=== PATIENT | male | born 1960 | race American Indian/Alaskan Native ===

== ENCOUNTER 2017-04-08 12:35 | Emergency (ER) | payer OTHER ==
[2017-04-08 12:47] VITALS: RESP 18
[2017-04-08] MEDS ORDERED: Aspirin 325 mg EC Tablets PO STA (13:08)
--- NOTE | 2017-04-08 13:46 | RAD ---
PROCEDURE: CHEST RADIOGRAPH, 1 VIEW HISTORY: chest pain COMPARISON: None available. FINDINGS: LUNGS: Clear. PLEURA: No pneumothorax or pleural fluid seen. CARDIOVASCULAR: Normal. OSSEOUS STRUCTURES: No significant abnormalities. VISUALIZED UPPER ABDOMEN: Normal. OTHER FINDINGS: None. IMPRESSION: No active disease.
[2017-04-08 13:48] LABS: BASO % 0.7 % (0.0-2.0); EOS # 0.1 K/uL (0.0-0.7); EOS % 1.4 % (0.0-4.0); LYMPH # 1.7 K/uL (1.0-4.3); LYMPH % 34.4 % (20.0-40.0); MEAN CELL VOLUME 92.7 fL (80.0-94.0); MEAN CORPUSCULAR HEMOGLOBIN 30.8 pg (27.0-31.0); MEAN CORPUSCULAR HGB CONC 33.3 g/dL (33.0-37.0); MONO # 0.5 K/uL (0.0-0.8); MONO % 10.4 % (0.0-10.0); NRBC % 0.1 % (0.0-2.0); RED CELL DISTRIBUTION WIDTH 13.8 % (11.5-14.5); WHITE BLOOD COUNT 4.9 K/uL (4.8-10.8)
[2017-04-08 14:00] LABS: ALB/GLOB RATIO 1.1 (1.0-2.1); ALKALINE PHOSPHATASE 77 U/L (38-126); ALT/SGPT 32 U/L (21-72); AST/SGOT 37 U/L (17-59); BILIRUBIN,TOTAL 0.7 mg/dL (0.2-1.3); BLOOD UREA NITROGEN 14 mg/dL (9-20); CALCIUM 8.8 mg/dl (8.6-10.4); CARBON DIOXIDE 23 mmol/L (22-30); CHLORIDE 107 mmol/L (98-107); GFR AFRICAN-AMERICAN > 60; GLUCOSE,RANDOM 100 mg/dL (75-110); POTASSIUM 3.9 mmol/L (3.6-5.2); SODIUM 142 mmol/L (132-148); TOTAL PROTEIN 7.2 g/dL (6.3-8.3)
[2017-04-08 14:50] VITALS: BP 201/91; PULSE 88; TEMP 97.7; O2SAT 99
--- NOTE | 2017-04-08 17:46 | C.PDOC ---
History Of Present Illness 56 y/o male presents to ED with complaints of intermittent chest pain for 5 days and occasional sob after walking flight of stairs. Patient reports he has not seen PMD in 2 years. AT ed patient is currently pain free and denies fever, cough, nausea, vomiting, recent travel, change in appetite or any other complaints at this time. Time Seen by Provider: 04/08/17 13:08 Chief Complaint (Nursing): Chest Pain History Per: Patient History/Exam Limitations: no limitations Onset/Duration Of Symptoms: Days Current Symptoms Are (Timing): Still Present Past Medical History Reviewed: Historical Data, Nursing Documentation, Vital Signs Vital Signs: Last Vital Signs Temp 97.7 F 04/08/17 14:49 Pulse 88 04/08/17 14:49 Resp 18 04/08/17 14:49 BP 201/91 H 04/08/17 14:49 Pulse Ox 99 04/08/17 17:50 - Medical History PMH: HTN Family History: States: No Known Family Hx - Social History Hx Alcohol Use: Yes Hx Substance Use: No - Immunization History Hx Tetanus Toxoid Vaccination: No Hx Influenza Vaccination: No Hx Pneumococcal Vaccination: No Review Of Systems Except As Marked, All Systems Reviewed And Found Negative. Constitutional: Negative for: Fever, Chills Cardiovascular: Positive for: Chest Pain Respiratory: Positive for: Shortness of Breath. Negative for: Cough Gastrointestinal: Negative for: Nausea, Vomiting Skin: Negative for: Rash Physical Exam - Physical Exam Appears: Non-toxic, No Acute Distress Skin: Normal Color, Warm, No Rash Head: Atraumatic, Normacephalic Eye(s): bilateral: Normal Inspection Oral Mucosa: Moist Chest: Symmetrical Cardiovascular: Rhythm Regular Respiratory: Normal Breath Sounds, No Rales, No Rhonchi, No Wheezing Gastrointestinal/Abdominal: Soft, No Tenderness, No Guarding, No Rebound Neurological/Psych: Oriented x3, Normal Speech ED Course And Treatment - Laboratory Results Result Diagrams: 04/08/17 13:42 04/08/17 13:42 ECG: Interpreted By Me, Viewed By Me ECG Rhythm: Sinus Rhythm Interpretation Of ECG: LVH with repolarization abnormality Rate From EC (bpm) O2 Sat by Pulse Oximetry: 99 (RA) Pulse Ox Interpretation: Normal Medical Decision Making Medical Decision Making: Patient will be discharged and advised to follow up with PMD. Disposition - Disposition Referrals: [facility] [Outside] [facility] [Outside] Disposition: HOME/ ROUTINE Disposition Time: 14:20 Condition: GOOD Additional Instructions: Thank you for letting us take care of you today. Your provider was Dr. Raymond. You were treated for non-cardiac chest pain. The emergency medical care you received today was directed at your acute symptoms. If you were prescribed any medication, please fill it and take as directed. It may take several days for your symptoms to resolve. Return to the Emergency Department if your symptoms worsen, do not improve, or if you have any other problems. Please contact your doctor or call one of the physicians/clinics you have been referred to that are listed on the Patient Visit Information form that is included in your discharge packet. Bring any paperwork you were given at discharge with you along with any medications you are taking to your follow up visit. Our treatment cannot replace ongoing medical care by a primary care provider (PCP) outside of the emergency department. Thank you for allowing the [facility] team to be part of your care today. Follow up with the clinic in 3-4 days for outpatient care and further management. Prescriptions: Hydrochlorothiazide [Microzide] 12.5 mg PO DAILY #7 cap Ibuprofen [Motrin] 600 mg PO Q6 PRN #20 tab PRN Reason: Pain, Moderate (4-7) Instructions: Low Sodium Diet (ED), Hypertension (ED) Forms: [employer] (Fijian) - Clinical Impression Clinical Impression: Hypertension - Scribe Statement The provider has reviewed the documentation as recorded by the Kiahibtish Vila All medical record entries made by the Scribe were at my direction and personally dictated by me. I have reviewed the chart and agree that the record accurately reflects my personal performance of the history, physical exam, medical decision making, and the department course for this patient. I have also personally directed, reviewed, and agree with the discharge instructions and disposition.
--- NOTE | 2017-04-11 21:00 | CARD ---
APPROVED REPORT EKG Measurement Heart [id number] <Conclusion> Normal sinus rhythm Possible Left atrial enlargement Left ventricular hypertrophy with repolarization abnormality Prolonged QT Abnormal ECG
== END 2017-04-08 14:50 | disposition home or self-care (01) ==
LOC: C.ER 12:35
DX: I10 Essential (primary) hypertension (principal)
CPT/HCPCS: 71010; 80053; 83880; 84484; 85025; 96374; 99284; J1885

== ENCOUNTER 2018-06-01 14:55 | Inpatient (IN) | payer SELFPAY ==
[2018-06-01] MEDS ORDERED: Nitroglycerin 2% Ointment Foilpak UD TOP STA (15:27)
[2018-06-01] MEDS ORDERED: Nitroglycerin 2% Ointment Foilpak UD TOP ONE (15:44)
[2018-06-01 16:04] LABS: BASO # 0.1 K/uL (0.0-0.2); EOS # 0.1 K/uL (0.0-0.7); EOS % 1.2 % (0.0-4.0); HEMOGLOBIN 15.3 g/dL (12.0-18.0); LYMPH # 1.2 K/uL (1.0-4.3); LYMPH % 22.8 % (20.0-40.0); MEAN CELL VOLUME 92.5 fL (80.0-94.0); MEAN CORPUSCULAR HEMOGLOBIN 31.8 pg (27.0-31.0); MEAN CORPUSCULAR HGB CONC 34.4 g/dL (33.0-37.0); MEAN PLATELET VOLUME 9.6 fL (7.2-11.7); MONO # 0.6 K/uL (0.0-0.8); MONO % 10.3 % (0.0-10.0); NEUT # 3.5 K/uL (1.8-7.0); NEUT % 64.7 % (50.0-75.0); NRBC % 0.1 % (0.0-2.0); RBC 4.82 Mil/uL (4.40-5.90); RED CELL DISTRIBUTION WIDTH 14.4 % (11.5-14.5); WHITE BLOOD COUNT 5.5 K/uL (4.8-10.8)
[2018-06-01 16:11] VITALS: BMI 35.0
--- NOTE | 2018-06-01 16:11 | C.PDOC ---
History Of Present Illness 58 y/o male presents to ED for evaluation of worsening dyspnea on exertion for the last 2 months since he ran out of his medications. He reports difficulty with walking up the stairs due to SOB, and SOB with minimal exertion. Smokes 1/2 ppd. He reports increased abdominal girth without increased PO intake. Denies other complaints. Time Seen by Provider: 06/01/18 15:14 Chief Complaint (Nursing): Chest Pain History Per: Patient History/Exam Limitations: no limitations Past Medical History Reviewed: Historical Data, Nursing Documentation, Vital Signs Vital Signs: Last Vital Signs Temp 97.7 F 06/01/18 15:05 Pulse 86 06/01/18 15:05 Resp 23 06/01/18 15:05 BP 169/120 H 06/01/18 15:05 Pulse Ox 100 06/01/18 15:05 - Medical History PMH: HTN Family History: States: Unknown Family Hx - Social History Hx Alcohol Use: Yes Hx Substance Use: No - Immunization History Hx Tetanus Toxoid Vaccination: No Hx Influenza Vaccination: No Hx Pneumococcal Vaccination: No Review Of Systems Constitutional: Positive for: Other (severe sleep apnea, + orthopnea). Negative for: Fever, Chills Cardiovascular: Negative for: Chest Pain, Palpitations, Edema Respiratory: Positive for: Shortness of Breath, SOB with Excertion Gastrointestinal: Negative for: Nausea, Abdominal Pain Physical Exam - Physical Exam Appears: Non-toxic, No Acute Distress, Other (morbildy obese) Skin: Normal Color, Warm, Dry Head: Atraumatic, Normacephalic Eye(s): bilateral: Normal Inspection Oral Mucosa: Moist Neck: Supple Chest: Symmetrical Cardiovascular: JVD Respiratory: Normal Breath Sounds, No Rales, No Rhonchi, No Wheezing Gastrointestinal/Abdominal: Soft, No Tenderness, No Guarding, No Rebound, Other (globus abdomen, dull to percussion, shifting fluid?) Back: No CVA Tenderness Extremity: Normal ROM, Pedal Edema (1/4) Neurological/Psych: Oriented x3, Normal Speech ED Course And Treatment - Laboratory Results Result Diagrams: 06/01/18 15:59 06/01/18 15:59 Lab Interpretation: Abnormal (bnp 3700, trop neg, d-dimer mild elev 470 (below age limit for abn)) ECG: Interpreted By Me ECG Rhythm: Sinus Rhythm ECG Interpretation: Normal, Abnormal (LVH) Rate From EC O2 Sat by Pulse Oximetry: 100 - Radiology CXR: Interpreted by Me CXR Interpretation: Yes: Heart Size, Other (++CHF, ++ Cardiomegaly) Reevaluation Time: 17:35 (diuresed 2 L light Lasix urine, but still ++ HTN, Lisinopril 40 po ordered) - Physician Consult Information Outcome Of Conversation: 1730: d/w Dr. Haque- Hospitalist Electromechanical Technician- covering self-pay pt, ok to admit Medical Decision Making Medical Decision Making: Acutual pre-diuresis body weight 270# in ED (baseline 250#, per pt) CHF Severe dilated cardiomyopathy per CXR mild leg edema continue lasix Uncontrolled HTN ran out of meds 2 mo ago continue HTN meds QUYEN: Severe s/s poor sleep poor PO intake but steady weight gait consider Bipap/Sleep study Abd obesity Abd US fatty liver only continued weight loss. Disposition Doctor Will See Patient In The: Hospital Counseled Patient/Family Regarding: Studies Performed, Diagnosis - Disposition Disposition: HOSPITALIZED Disposition Time: 17:33 Condition: FAIR Forms: Hait[employer] (Nigerien) - Clinical Impression Clinical Impression: CHF (congestive heart failure), Sleep apnea in adult, Uncontrolled hypertension - Scribe Statement The provider has reviewed the documentation as recorded by the Scribe KP All medical record entries made by the Scribe were at my direction and personally dictated by me. I have reviewed the chart and agree that the record accurately reflects my personal performance of the history, physical exam, medical decision making, and the department course for this patient. I have also personally directed, reviewed, and agree with the discharge instructions and disposition.
--- NOTE | 2018-06-01 16:33 | RAD ---
Date of service: 06/01/2018 PROCEDURE: CHEST RADIOGRAPH, 1 VIEW HISTORY: SOB COMPARISON: 04/08/2017 FINDINGS: LUNGS: Pulmonary vascular congestion. No discrete infiltrates. PLEURA: No pneumothorax or pleural fluid seen. CARDIOVASCULAR: Cardiomegaly. OSSEOUS STRUCTURES: No significant abnormalities. VISUALIZED UPPER ABDOMEN: Normal. OTHER FINDINGS: None. IMPRESSION: Cardiomegaly/new pulmonary vascular congestion compared to the prior study.
[2018-06-01 16:59] LABS: BLOOD UREA NITROGEN 12 mg/dL (9-20); CALCIUM 8.8 mg/dl (8.6-10.4); GFR NON-AFRICAN AMERICAN > 60
--- NOTE | 2018-06-01 16:59 | US ---
HISTORY: abd enlarged, ? ascites/liver COMPARISON: None available. TECHNIQUE: Sonographic evaluation of the abdomen. FINDINGS: LIVER: Measures 18.2 cm in sagittal dimension. Echogenic liver may be seen in setting of hepatic parenchymal disease or fatty infiltration. No focal hepatic mass identified. The main portal vein appears patent with normal directional flow. No intrahepatic bile duct dilatation. GALLBLADDER: No gallstones. No gallbladder wall thickening. Negative sonographic Rocha's sign as assessed by the regional production manager. COMMON BILE DUCT: Measures 4 mm. PANCREAS: Not well visualized. RIGHT KIDNEY: Measures 9.7 x 4.9 x 5.1 cm. No obstructing calculus or hydronephrosis identified. LEFT KIDNEY: Measures 11.4 x 5.3 x 4.7 cm. No obstructing calculus or hydronephrosis identified. 5.9 x 6.6 x 5.9 cm lower pole cyst. 1.9 x 1.3 x 1.6 cm lower pole cyst. 2.3 x 1.6 x 1.9 cm midpole cyst. SPLEEN: Measures approximately 8 cm. AORTA: Limited views appear unremarkable. IVC: Limited views appear unremarkable. OTHER FINDINGS: None. IMPRESSION: Echogenic liver may be seen in setting of hepatic parenchymal disease or fatty infiltration. Left renal cysts measuring up to 6.6 cm.
[2018-06-01 17:00] LABS: ALB/GLOB RATIO 1.1 (1.0-2.1); ALBUMIN 3.7 g/dL (3.5-5.0); ALT/SGPT 22 U/L (21-72); AST/SGOT 36 U/L (17-59)
[2018-06-01 17:11] LABS: B-TYPE NATRIURETIC PEPTIDE 3710 pg/mL (0-900)
[2018-06-01 17:15] LABS: INR 1.1
[2018-06-01 17:16] LABS: URINE BACTERIA RARE (<OCC); URINE BILIRUBIN NEGATIVE (NEGATIVE); URINE BLOOD NEGATIVE (NEGATIVE); URINE CLARITY Clear (Clear); URINE COLOR Yellow (YELLOW); URINE GLUCOSE (UA) NORMAL (Normal); URINE LEUKOCYTE ESTERASE NEG Leu/uL (Negative); URINE PROTEIN NEGATIVE (NEGATIVE); URINE UROBILINOGEN NORMAL mg/dL (0.2-1.0)
[2018-06-01 17:34] LABS: BARBITURATES, UR NEGATIVE (NEGATIVE); BENZODIAZEPINES, UR NEGATIVE (NEGATIVE); OPIATES, UR NEGATIVE (NEGATIVE); PHENCYCLIDINE, UR NEGATIVE (NEGATIVE)
--- NOTE | 2018-06-01 19:33 | CP.PCM.HP ---
<Lolis Hair - Last Filed: 06/02/18 03:54> History of Present Illness - History of Present Illness History of Present Illness: History and Physical - Hospitalist Service CC: Progressive Dyspnea on exertion, chest pain HPI: Patient is a 58 year old male with past medical history of Hypertension who presented to the emergency department for worsening dyspnea and chest pain. Patient states that he has been having increasing dyspnea on exertion for the past 2-3 months. He states that he is able to walk up 1 flight of stairs before having to stop due to shortness of breath. He states that he sleeps with one pillow at night. Patient states that chest pain started a few m onths ago as well. It is intermittent in nature and he believes is associated with shortness of breath. Chest pain is left sided and does not radiate. It was the most severe last night when he was laying down. Describes the pain as concurrent. He denies any alleviating or exacerbating factors. Not associated with movement. Denies diaphoresis, nausea, vomiting. He state that he fell walking down a flight of steps 3 months ago. He was not having chest pain or shortness of breath at that time. Admits to fatigue and not being able to sleep at night. He is unable to explain why he cannot sleep at night. Denies fevers, chills, nausea/vomiting, recent travel, sick contacts, headaches, dizziness, co ugh, palpitations, abdominal pain, orthopnea, lower extremity swelling, urinary symptoms, changes in bowel habits, hematuria. ED Course: Lasix 20mg IVP, Vastec 40mg PO x 1, Nitro 2% Allergies: NKDA Medications: HCTZ 12.5mg PO daily (ran out months ago) Medical History: Hypertension Surgical History: Denies Social History: Smokes 1 pack of cigarettes every 3 days, drinks 6 pack of beer on weekends occasionally, denies drug use; works as contractor, lives alone Family History: Mother - brain tumor, CVA in 70s, Father - CVA in 80s, Brother - Kidney cancer (), Brother - Leg cancer Present on Admission - Present on Admission Any Indicators Present on Admission: No Past Patient History - Past Social History Smoking Status: Light Smoker < 10 Cigarettes Daily - CARDIAC Hx Hypertension: Yes - PSYCHIATRIC Hx Substance Use: No - SURGICAL HISTORY Hx Surgeries: No - ANESTHESIA Hx Anesthesia: No Meds Allergies/Adverse Reactions: Allergies Allergy/AdvReac Type Severity Reaction Status Date / Time No Known Allergies Allergy Verified 06/01/18 15:03 Physical Exam - Constitutional Appears: Non-toxic, No Acute Distress - Head Exam Head Exam: ATRAUMATIC, NORMAL INSPECTION, NORMOCEPHALIC - Eye Exam Eye Exam: EOMI, Normal appearance Pupil Exam: NORMAL ACCOMODATION - ENT Exam ENT Exam: Mucous Membranes Moist - Neck Exam Neck exam: Positive for: Full Rom. Negative for: Tenderness - Respiratory Exam Respiratory Exam: Decreased Breath Sounds, NORMAL BREATHING PATTERN. absent: Rales, Rhonchi, Wheezes - Cardiovascular Exam Cardiovascular Exam: REGULAR RHYTHM, +S1, +S2. absent: Systolic Murmur - GI/Abdominal Exam GI & Abdominal Exam: Distended, Normal Bowel Sounds, Soft. absent: Guarding, Hernia, Rebound, Rigid, Tenderness - Extremities Exam Extremities exam: Positive for: normal inspection, pedal pulses present. Negative for: calf tenderness, joint swelling, pedal edema, tenderness - Back Exam Back exam: CVA tenderness (R), NORMAL INSPECTION - Neurological Exam Neurological exam: Alert, Oriented x3 - Psychiatric Exam Psychiatric exam: Normal Affect, Normal Mood - Skin Skin Exam: Dry, Normal Color, Warm Results - Vital Signs Recent Vital Signs: Last Vital Signs Temp 97.7 F 06/01/18 15:05 Pulse 81 06/01/18 18:44 Resp 19 06/01/18 18:44 BP 151/91 H 06/01/18 18:44 Pulse Ox 96 06/01/18 18:44 - Labs Result Diagrams: 06/01/18 15:59 06/01/18 15:59 Labs: Laboratory Results - last 24 hr 06/01/18 06/01/18 06/01/18 15:59 15:59 16:55 WBC 5.5 RBC 4.82 Hgb 15.3 Hct 44.6 MCV 92.5 MCH 31.8 H MCHC 34.4 RDW 14.4 Plt Count 204 MPV 9.6 Neut % (Auto) 64.7 Lymph % (Auto) 22.8 Peach % (Auto) 10.3 H Eos % (Auto) 1.2 Baso % (Auto) 1.0 Neut # (Auto) 3.5 Lymph # (Auto) 1.2 Peach # (Auto) 0.6 Eos # (Auto) 0.1 Baso # (Auto) 0.1 PT 12.0 INR 1.1 APTT 35 H D-Dimer, Quantitative 470 H Sodium 142 Potassium 5.1 Chloride 109 H Carbon Dioxide 23 Anion Gap 15 BUN 12 Creatinine 1.0 Est GFR ( Amer) > 60 Est GFR (Non-Af Amer) > 60 Random Glucose 98 Calcium 8.8 Total Bilirubin 1.1 AST 36 ALT 22 Alkaline Phosphatase 61 Troponin I 0.0680 NT-Pro-B Natriuret Pep 3710 H Total Protein 7.1 Albumin 3.7 Globulin 3.4 Albumin/Globulin Ratio 1.1 Urine Color Urine Clarity Urine pH Ur Specific [place] Urine Protein Urine Glucose (UA) Urine Ketones Urine Blood Urine Nitrate Urine Bilirubin Urine Urobilinogen Ur Leukocyte Esterase Urine WBC (Auto) Urine Bacteria Urine Opiates Screen Urine Methadone Screen Ur Barbiturates Screen Ur Phencyclidine Scrn Ur Amphetamines Screen U Benzodiazepines Scrn U Oth Cocaine Metabols U Cannabinoids Screen 06/01/18 06/01/18 17:11 17:11 WBC RBC Hgb Hct MCV MCH MCHC RDW Plt Count MPV Neut % (Auto) Lymph % (Auto) Peach % (Auto) Eos % (Auto) Baso % (Auto) Neut # (Auto) Lymph # (Auto) Peach # (Auto) Eos # (Auto) Baso # (Auto) PT INR APTT D-Dimer, Quantitative Sodium Potassium Chloride Carbon Dioxide Anion Gap BUN Creatinine Est GFR ( Amer) Est GFR (Non-Af Amer) Random Glucose Calcium Total Bilirubin AST ALT Alkaline Phosphatase Troponin I NT-Pro-B Natriuret Pep Total Protein Albumin Globulin Albumin/Globulin Ratio Urine Color Yellow Urine Clarity Clear Urine pH 6.0 Ur Specific [place] 1.004 Urine Protein Negative Urine Glucose (UA) Normal Urine Ketones Negative Urine Blood Negative Urine Nitrate Negative Urine Bilirubin Negative Urine Urobilinogen Normal Ur Leukocyte Esterase Neg Urine WBC (Auto) < 1 Urine Bacteria Rare Urine Opiates Screen Negative Urine Methadone Screen Negative Ur Barbiturates Screen Negative Ur Phencyclidine Scrn Negative Ur Amphetamines Screen Negative U Benzodiazepines Scrn Negative U Oth Cocaine Metabols Negative U Cannabinoids Screen Negative Assessment & Plan - Assessment and Plan (Free Text) Assessment: A/P: Patient is a 58 year old male with past medical history of Hypertension who presented to the Emergency Dept for worsening dyspnea and left sided chest pain. Dyspnea likely secondary to new onset CHF -Stable, afebrile -EKG showed LVH with inverted T waves -Initial Troponin negative, Trend [place] Q8H x 2 -CXR showed Cardiomegaly with increased pulmonary vascular congestion (see full report) -S/P Lasix 20mg IVP x 1 -Echocardiogram ordered -Start on Lisinopril 10mg daily, Coreg 3.125mg PO BID -Continue Lasix 20mg IVP daily -Daily weights, Intake and output -Cardiology on consult, Dr Loza, help appreciated Chest pain, r/o ACS -EKG showed LVH with inverted T waves -Initial Troponin negative, Trend [place] Q8H x 2 -F/U TSH/Free T4, Lipid panel, Hemoglobin A1C -Cardiology on consult, Dr Loza, help appreciated Hypertension -Started on Lisinopril 10mg PO daily, Coreg 3.125mg PO BID -Monitor Vitals Renal Cysts -Up to 6.6cm renal cyst noted on abdominal US -Will order CT abd/pelvis for further evaluation Tobacco abuse -Cessation encouraged GI/DVT ppx: -Protonix 40mg PO daily -Lovenox 40mg SC daily Plan discussed with Dr Reji Hair DO PGY-2 <Jet Mendoza P - Last Filed: 06/02/18 07:09> Results - Vital Signs Recent Vital Signs: Last Vital Signs Temp 98.1 F 06/02/18 04:00 Pulse 78 06/02/18 04:00 Resp 20 06/02/18 04:00 BP 148/100 H 06/02/18 04:00 Pulse Ox 96 06/02/18 04:00 - Labs Result Diagrams: 06/01/18 15:59 06/01/18 15:59 Labs: Laboratory Results - last 24 hr 06/01/18 06/01/18 06/01/18 15:59 15:59 16:55 WBC 5.5 RBC 4.82 Hgb 15.3 Hct 44.6 MCV 92.5 MCH 31.8 H MCHC 34.4 RDW 14.4 Plt Count 204 MPV 9.6 Neut % (Auto) 64.7 Lymph % (Auto) 22.8 Peach % (Auto) 10.3 H Eos % (Auto) 1.2 Baso % (Auto) 1.0 Neut # (Auto) 3.5 Lymph # (Auto) 1.2 Peach # (Auto) 0.6 Eos # (Auto) 0.1 Baso # (Auto) 0.1 PT 12.0 INR 1.1 APTT 35 H D-Dimer, Quantitative 470 H Sodium 142 Potassium 5.1 Chloride 109 H Carbon Dioxide 23 Anion Gap 15 BUN 12 Creatinine 1.0 Est GFR ( Amer) > 60 Est GFR (Non-Af Amer) > 60 Random Glucose 98 Calcium 8.8 Total Bilirubin 1.1 AST 36 ALT 22 Alkaline Phosphatase 61 Total Creatine Kinase CK-MB (Mass) Troponin I 0.0680 NT-Pro-B Natriuret Pep 3710 H Total Protein 7.1 Albumin 3.7 Globulin 3.4 Albumin/Globulin Ratio 1.1 Urine Color Urine Clarity Urine pH Ur Specific [place] Urine Protein Urine Glucose (UA) Urine Ketones Urine Blood Urine Nitrate Urine Bilirubin Urine Urobilinogen Ur Leukocyte Esterase Urine WBC (Auto) Urine Bacteria Urine Opiates Screen Urine Methadone Screen Ur Barbiturates Screen Ur Phencyclidine Scrn Ur Amphetamines Screen U Benzodiazepines Scrn U Oth Cocaine Metabols U Cannabinoids Screen 06/01/18 06/01/18 06/01/18 17:11 17:11 22:40 WBC RBC Hgb Hct MCV MCH MCHC RDW Plt Count MPV Neut % (Auto) Lymph % (Auto) Peach % (Auto) Eos % (Auto) Baso % (Auto) Neut # (Auto) Lymph # (Auto) Peach # (Auto) Eos # (Auto) Baso # (Auto) PT INR APTT D-Dimer, Quantitative Sodium Potassium Chloride Carbon Dioxide Anion Gap BUN Creatinine Est GFR ( Amer) Est GFR (Non-Af Amer) Random Glucose Calcium Total Bilirubin AST ALT Alkaline Phosphatase Total Creatine Kinase 134 CK-MB (Mass) 2.11 Troponin I 0.0680 NT-Pro-B Natriuret Pep Total Protein Albumin Globulin Albumin/Globulin Ratio Urine Color Yellow Urine Clarity Clear Urine pH 6.0 Ur Specific [place] 1.004 Urine Protein Negative Urine Glucose (UA) Normal Urine Ketones Negative Urine Blood Negative Urine Nitrate Negative Urine Bilirubin Negative Urine Urobilinogen Normal Ur Leukocyte Esterase Neg Urine WBC (Auto) < 1 Urine Bacteria Rare Urine Opiates Screen Negative Urine Methadone Screen Negative Ur Barbiturates Screen Negative Ur Phencyclidine Scrn Negative Ur Amphetamines Screen Negative U Benzodiazepines Scrn Negative U Oth Cocaine Metabols Negative U Cannabinoids Screen Negative Attending/Attestation - Attestation I have personally seen and examined this patient.: Yes I have fully participated in the care of the patient.: Yes I have reviewed all pertinent clinical information: Yes Notes (Text): 06/02/18 06:56 Progressive sob and cp on exertion, no orthpnea, clinically not volume overload, LVH with strain pattern on the ekg, with uncontrolled htn, DD of hypertensive cardiomyopathy vs previous with new angina. Noncompliance with meds Abdominal distension likely form fat, weight gain Tobacco abuse Plan ACEI, Beta stephen for cardiac remodelling, added hctz for better control of BP as well ASA, Crestor as he as risk factors and cad clinically Echo in patient Stress test in patient vs out patient Counselled about tobacco cessation, compliance with meds and health Abd/pelvis ct with oral contrast ordered due to increased abd girth Gi/dvt prophylaxis Cardiology consult See orders for detail.
[2018-06-01 22:25] VITALS: RESP 20
[2018-06-01 23:08] LABS: CK-MB 2.11 ng/mL (0.0-3.38); TROPONIN I 0.068 ng/mL (0.00-0.120)
[2018-06-02] MEDS ORDERED: Iohexol 240 (50 ml) PO ONE (09:00)
[2018-06-02] MEDS: Enoxaparin 40 mg Syringe SC SCH (09:33)
[2018-06-02] MEDS ORDERED: Perflutren Lipid Microsphere 1.5 ML SUS IV ONE (11:17)
--- NOTE | 2018-06-02 11:25 | CP.PCM.PN ---
Subjective - Date & Time of Evaluation Date of Evaluation: 06/02/18 Time of Evaluation: 09:00 - Subjective Subjective: PGY-[address] Haque Patient is seen and examined at bedside. Patient complains of not having been able to get some sleep over 24 hours, which says is keeping him in the current state he is. Patient continues to complain of chest pain on left side of anterior chest cavity, and right shoulder area. Patient describes it as crampy, constant pain. Patient denies shortness of breath. Patient feels very sleeping at this time. Patient denies fever, chills, nausea, vomiting, diarrhea, constipation, abdominal pain, or dysuria. Objective - Vital Signs/Intake and Output Vital Signs (last 24 hours): Temp Pulse Resp BP Pulse Ox 98.0 F 81 20 163/101 H 97 06/02/18 07:00 06/02/18 08:00 06/02/18 07:00 06/02/18 08:03 06/02/18 07:00 Intake and Output: 06/02/18 06/02/18 06:59 18:59 Output Total 300 Balance -300 - Medications Medications: Current Medications Acetaminophen (Tylenol 325mg Tab) 650 mg PO Q6 PRN PRN Reason: Headache Last Admin: 06/01/18 22:13 Dose: 650 mg Aspirin (Aspirin Chewable) 81 mg PO DAILY [facility] Last Admin: 06/02/18 09:33 Dose: 81 mg Carvedilol (Coreg) 3.125 mg PO BID [facility] Last Admin: 06/02/18 08:01 Dose: 3.125 mg Enoxaparin Sodium (Lovenox) 40 mg SC DAILY [facility] Last Admin: 06/02/18 09:33 Dose: 40 mg Hydrochlorothiazide (Microzide) 12.5 mg PO DAILY [facility] Last Admin: 06/02/18 08:00 Dose: 12.5 mg Influenza Virus Vaccine (Fluzone Quad [id number]) 60 mcg IM .ONCE ONE Stop: 06/03/18 12:01 Lisinopril (Zestril) 10 mg PO DAILY [facility] Last Admin: 06/02/18 08:01 Dose: 10 mg Pantoprazole Sodium (Protonix Ec Tab) 40 mg PO DAILY [facility] Pneumococcal Polyvalent Vaccine (Pneumovax 23 Vaccine) 0.5 ml IM .ONCE ONE Stop: 06/03/18 12:01 Rosuvastatin Calcium (Crestor) 5 mg PO HS [facility] - Labs Labs: 06/01/18 15:59 06/01/18 15:59 PT 12.0 SECONDS (9.7-12.2) 06/01/18 16:55 INR 1.1 06/01/18 16:55 APTT 35 SECONDS (21-34) H 06/01/18 16:55 - Constitutional Appears: Non-toxic, No Acute Distress - Head Exam Head Exam: ATRAUMATIC, NORMAL INSPECTION, NORMOCEPHALIC - Eye Exam Eye Exam: EOMI, Normal appearance - ENT Exam ENT Exam: Mucous Membranes Moist, Normal Exam - Neck Exam Neck Exam: Full ROM, Normal Inspection - Respiratory Exam Respiratory Exam: Clear to Ausculation Bilateral, NORMAL BREATHING PATTERN. absent: Accessory Muscle Use, Respiratory Distress - Cardiovascular Exam Cardiovascular Exam: REGULAR RHYTHM, +S1, +S2 - GI/Abdominal Exam GI & Abdominal Exam: Soft, Normal Bowel Sounds. absent: Distended, Guarding, Tenderness - Extremities Exam Extremities Exam: Full ROM, Normal Inspection - Back Exam Back Exam: NORMAL INSPECTION - Neurological Exam Neurological Exam: Alert, Awake, Oriented x3 - Psychiatric Exam Psychiatric exam: Normal Affect, Normal Mood - Skin Skin Exam: Dry, Intact, Normal Color, Warm Assessment and Plan - Assessment and Plan (Free Text) Plan: Dyspnea likely secondary to new onset CHF -Stable, afebrile -EKG showed LVH with inverted T waves -Initial Troponin negative, Trend [place] Q8H x 2 -CXR showed Cardiomegaly with increased pulmonary vascular congestion (see full report) -S/P Lasix 20mg IVP x 1 -Echocardiogram ordered - f/u official report -Continue Lisinopril 10mg daily, Coreg 3.125mg PO BID -Continue Lasix 20mg IVP daily -Daily weights, Intake and output -Cardiology on consult, Dr Loza, help appreciated Chest pain, r/o ACS -EKG showed LVH with inverted T waves -Troponin negative x 3 -F/U TSH/Free T4, Lipid panel, Hemoglobin A1C -Cardiology on consult, Dr Loza, help appreciated Hypertension -Started on Lisinopril 10mg PO daily, Coreg 3.125mg PO BID -increased HCTZ from 12.5mg to 25 mg PO daily -Monitor Vitals Renal Cysts -Up to 6.6cm renal cyst noted on abdominal US -F/U CT abd/pelvis results - done today Tobacco abuse -Cessation encouraged GI/DVT ppx: -Protonix 40mg PO daily -Lovenox 40mg SC daily -SCDS contraindicated for CHF -Heart healthy diet Plan discussed with Dr Garland Yee, PGY01
[2018-06-02 11:46] LABS: BASO % 0.6 % (0.0-2.0); EOS # 0.1 K/uL (0.0-0.7); EOS % 1.6 % (0.0-4.0); LYMPH # 1.4 K/uL (1.0-4.3); LYMPH % 24.9 % (20.0-40.0); MEAN CORPUSCULAR HEMOGLOBIN 32.1 pg (27.0-31.0); MEAN CORPUSCULAR HGB CONC 34.1 g/dL (33.0-37.0); MONO # 0.4 K/uL (0.0-0.8); MONO % 8.1 % (0.0-10.0); NEUT # 3.5 K/uL (1.8-7.0); NEUT % 64.8 % (50.0-75.0); NRBC % 0.1 % (0.0-2.0); RBC 4.67 Mil/uL (4.40-5.90); RED CELL DISTRIBUTION WIDTH 14.2 % (11.5-14.5); WHITE BLOOD COUNT 5.4 K/uL (4.8-10.8)
[2018-06-02 12:26] LABS: ALB/GLOB RATIO 1.1 (1.0-2.1); ALBUMIN 3.6 g/dL (3.5-5.0); ALT/SGPT 22 U/L (21-72); AST/SGOT 21 U/L (17-59); BLOOD UREA NITROGEN 14 mg/dL (9-20); CALCIUM 9.1 mg/dl (8.6-10.4); GFR NON-AFRICAN AMERICAN > 60; HDL CHOLESTEROL 36 mg/dL (30-70)
[2018-06-02 12:34] LABS: CK-MB 2.17 ng/mL (0.0-3.38)
[2018-06-02 12:38] LABS: LDL CHOLESTEROL 115 mg/dL (0-129)
[2018-06-03] MEDS: Pantoprazole 40 mg EC Tab PO SCH (09:37)
[2018-06-03] MEDS: Enoxaparin 40 mg Syringe SC SCH ×2 (09:37→10:46)
[2018-06-03] MEDS ORDERED: Pneumococcal 23-Valent Vaccine IM ONE (12:00)
[2018-06-03] MEDS ORDERED: Influenza Vaccine 60 MCG/0.5 ML SYR (3 yr & up) IM ONE (12:00)
[2018-06-03 12:07] LABS: BASO % 0.7 % (0.0-2.0); EOS # 0.1 K/uL (0.0-0.7); HEMOGLOBIN 15.7 g/dL (12.0-18.0); LYMPH # 1.4 K/uL (1.0-4.3); MEAN CELL VOLUME 93.3 fL (80.0-94.0); MEAN CORPUSCULAR HEMOGLOBIN 31.4 pg (27.0-31.0); MEAN CORPUSCULAR HGB CONC 33.7 g/dL (33.0-37.0); MEAN PLATELET VOLUME 9.8 fL (7.2-11.7); MONO # 0.5 K/uL (0.0-0.8); MONO % 9.1 % (0.0-10.0); NEUT # 3.4 K/uL (1.8-7.0); NEUT % 62.2 % (50.0-75.0); NRBC % 0.1 % (0.0-2.0); RBC 5.01 Mil/uL (4.40-5.90); WHITE BLOOD COUNT 5.4 K/uL (4.8-10.8)
[2018-06-03 12:35] LABS: ALB/GLOB RATIO 1.3 (1.0-2.1); ALBUMIN 4.2 g/dL (3.5-5.0); ALT/SGPT 18 U/L (21-72); AST/SGOT 23 U/L (17-59); BLOOD UREA NITROGEN 18 mg/dL (9-20); CALCIUM 9.6 mg/dl (8.6-10.4); GFR NON-AFRICAN AMERICAN > 60
--- NOTE | 2018-06-03 17:41 | CT ---
Date of service: 06/02/2018 PROCEDURE: CT Abdomen and Pelvis.. HISTORY: Renal cyst COMPARISON: Comparison made with abdominal ultrasound 06/01/2018 TECHNIQUE: Contiguous axial images of the abdomen and pelvis performed with oral contrast. IV contrast not injected per request coronal and Sagittal reformats generated. Radiation dose: Total exam DLP = 1055.34 mGy-cm. This CT exam was performed using one or more of the following dose reduction techniques: Automated exposure control, adjustment of the mA and/or kV according to patient size, and/or use of iterative reconstruction technique. FINDINGS: LOWER THORAX: Heart is enlarged. No significant pericardial effusion Tiny hiatal hernia. Small right-sided effusion with minimal right basilar atelectasis. Right lung base clear. LIVER: Unremarkable. No gross lesion or ductal dilatation. GALLBLADDER AND BILE DUCTS: Gallbladder incompletely distended. No evidence of intraluminal gallbladder calculi. PANCREAS: Unremarkable. No mass. No ductal dilatation. SPLEEN: Unremarkable. No splenomegaly. ADRENALS: Slightly nodular appearing adrenal glands bilaterally which exhibit on Hounsfield units in the lower teens and negative single digits on the left side and right side respectively. Findings likely represent small adenomas.. Consider follow-up MRI of the adrenal glands. KIDNEYS AND URETERS: There are multiple on cystic foci left kidney the largest of which is anteriorly located and exophytic arising from the lower pole measuring approximately 6.8 cm. BLADDER: Urinary bladder incompletely distended which in part accounts for thick-walled appearance. Muscular hypertrophy presumably contributes. Correlation with urinalysis could be performed to exclude other a cystitis however other intrinsic/invasive wall lesion not excluded. REPRODUCTIVE: Prostate gland measures approximately 3.7 cm in transverse dimension. APPENDIX: No evidence of acute appendicitis. BOWEL: Evaluation of the bowel is somewhat limited due to incomplete opacification.. Stomach partially distended with food debris liquid and air. Visualized small bowel exhibit normal contour and caliber. No evidence of acute mechanical small bowel obstruction with oral contrast material seen extending into the colon to the level of the rectum. There are scattered colonic diverticula seen along the sigmoid colon however no radiographic evidence of acute diverticulitis. No definitive mural wall thickening of the colon.. PERITONEUM: Unremarkable. No fluid collection. No free air. Small fat containing bilateral inguinal hernias. LYMPH NODES: Unremarkable. No enlarged lymph nodes. VASCULATURE: Unremarkable. No aortic aneurysm. BONES: Mild multilevel degenerative spondylosis of the lower thoracic and lumbar spine. OTHER FINDINGS: None. IMPRESSION: Multiple left-sided renal cysts the largest measuring 6.8 cm as described. Small right-sided effusion with minor right basilar atelectasis. Cardiomegaly. Few scattered colonic diverticula without radiographic evidence of acute diverticulitis. Slightly nodular appearing adrenal glands possibly representing small adenomas. Cardiomegaly.
--- NOTE | 2018-06-03 17:54 | CP.PCM.PN ---
Subjective - Date & Time of Evaluation Date of Evaluation: 06/03/18 Time of Evaluation: 09:30 - Subjective Subjective: PGY-[address] Richter Patient seen and examined at bedside. Patient states chest pain is improving. patient complains of having pressure from belly pressing into his chest area. Patient admit to urinating a lot. patient denies fever, chills, shortness of breath, nausea, vomiting, diarrhea or constipation. Patient is out of bed and tolerates diet. Objective - Vital Signs/Intake and Output Vital Signs (last 24 hours): Temp Pulse Resp BP Pulse Ox 98.3 F 72 20 146/94 H 96 06/03/18 15:00 06/03/18 15:00 06/03/18 15:00 06/03/18 15:00 06/03/18 15:00 Intake and Output: 06/03/18 06/03/18 06:59 18:59 Intake Total 480 600 Output Total 400 Balance 480 200 - Medications Medications: Current Medications Acetaminophen (Tylenol 325mg Tab) 650 mg PO Q6 PRN PRN Reason: Headache Last Admin: 06/01/18 22:13 Dose: 650 mg Aspirin (Aspirin Chewable) 81 mg PO DAILY [facility] Last Admin: 06/03/18 09:37 Dose: 81 mg Carvedilol (Coreg) 6.25 mg PO BID [facility] Last Admin: 06/03/18 17:49 Dose: 6.25 mg Enoxaparin Sodium (Lovenox) 40 mg SC DAILY [facility] Last Admin: 06/03/18 09:37 Dose: 40 mg Furosemide (Lasix) 40 mg IVP Q24H [facility] Last Admin: 06/03/18 13:36 Dose: 40 mg Lisinopril (Zestril) 10 mg PO DAILY [facility] Last Admin: 06/03/18 09:37 Dose: 10 mg Nicotine (Nicoderm Cq) 1 patch TD DAILY [facility] Pantoprazole Sodium (Protonix Ec Tab) 40 mg PO DAILY [facility] Last Admin: 06/03/18 09:37 Dose: 40 mg Rosuvastatin Calcium (Crestor) 5 mg PO HS [facility] Last Admin: 06/02/18 22:00 Dose: 5 mg - Labs Labs: 06/03/18 11:56 06/03/18 11:56 PT 12.0 SECONDS (9.7-12.2) 06/01/18 16:55 INR 1.1 06/01/18 16:55 APTT 35 SECONDS (21-34) H 06/01/18 16:55 - Constitutional Appears: Well, Non-toxic, No Acute Distress - Head Exam Head Exam: ATRAUMATIC, NORMAL INSPECTION, NORMOCEPHALIC - Eye Exam Eye Exam: EOMI, Normal appearance - ENT Exam ENT Exam: Mucous Membranes Moist, Normal Exam - Neck Exam Neck Exam: Full ROM, Normal Inspection - Respiratory Exam Respiratory Exam: Clear to Ausculation Bilateral, NORMAL BREATHING PATTERN - Cardiovascular Exam Cardiovascular Exam: REGULAR RHYTHM, +S1, +S2 - GI/Abdominal Exam GI & Abdominal Exam: Distended, Soft, Normal Bowel Sounds. absent: Guarding, Tenderness - Extremities Exam Extremities Exam: Full ROM, Normal Inspection. absent: Calf Tenderness, Tenderness - Back Exam Back Exam: NORMAL INSPECTION - Neurological Exam Neurological Exam: Alert, Awake, Oriented x3 - Psychiatric Exam Psychiatric exam: Normal Affect, Normal Mood - Skin Skin Exam: Dry, Intact, Warm Assessment and Plan - Assessment and Plan (Free Text) Plan: Dyspnea likely secondary to new onset CHF -Stable, afebrile -EKG showed LVH with inverted T waves -Initial Troponin negative, Trend [place] Q8H x 2 -CXR showed Cardiomegaly with increased pulmonary vascular congestion (see full report) -Echocardiogram ordered - f/u official report -Continue Lisinopril 10mg daily, -Coreg increased to 6.25mg PO BID -Lasix 40mg IVP daily -Daily weights, Intake and output -Cardiology on consult, Dr Loza, help appreciated - Duonebs Q6hr PRN Chest pain -EKG showed LVH with inverted T waves -Troponin negative x 3 -F/U TSH/Free T4, Lipid panel, Hemoglobin A1C -Cardiology on consult, Dr Loza, help appreciated Hypertension -Started on Lisinopril 10mg PO daily, Coreg 6.25mg PO BID -d/c HCTZ -Monitor Vitals Renal Cysts -Up to 6.6cm renal cyst noted on abdominal US -F/U CT abd/pelvis results - pending official report Tobacco abuse -Cessation encouraged - Nicotine 14mg/24hrs patch GI/DVT ppx: -Protonix 40mg PO daily -Lovenox 40mg SC daily -SCDS contraindicated for CHF -Heart healthy diet Plan discussed with Dr Neelam Yee
[2018-06-03] MEDS ORDERED: Albuterol-Ipratrop 3 mg / 0.5 (3 ml) UD INH PRN (19:34)
--- NOTE | 2018-06-03 22:38 | CP.PCM.CON ---
History of Present Illness - History of Present Illness History of Present Illness: CC: Progressive Dyspnea on exertion, chest pain HPI: Patient is a 58 year old male with past medical history of Hypertension who presented to the emergency department for worsening dyspnea and chest pain. Patient states that he has been having increasing dyspnea on exertion for the past 2-3 months. He states that he is able to walk up 1 flight of stairs before having to stop due to shortness of breath. He states that he sleeps with one pillow at night. Patient states that chest pain started a few months ago as well. It is intermittent in nature and he believes is associated with shortness of breath. Chest pain is left sided and does not radiate. It was the most severe last night when he was laying down. Describes the pain as concurrent. He denies any alleviating or exacerbating factors. Not associated with movement. Denies diaphoresis, nausea, vomiting. He state that he fell walking down a flight of steps 3 months ago. He was not having chest pain or shortness of breath at that time. Admits to fatigue and not being able to sleep at night. He is unable to explain why he cannot sleep at night. Denies fevers, chills, nausea/vomiting, recent travel, sick contacts, headaches, dizziness, cough, palpitations, abdominal pain, orthopnea, lower extremity swelling, urinary symptoms, changes in bowel habits, hematuria. ED Course: Lasix 20mg IVP, Vastec 40mg PO x 1, Nitro 2% Allergies: NKDA Medications: HCTZ 12.5mg PO daily (ran out months ago) Medical History: Hypertension Surgical History: Denies Social History: Smokes 1 pack of cigarettes every 3 days, drinks 6 pack of beer on weekends occasionally, denies drug use; works as contractor, lives alone Family History: Mother - brain tumor, CVA in 70s, Father - CVA in 80s, Brother - Kidney cancer (), Brother - Leg cancer Present on Admission - Present on Admission Any Indicators Present on Admission: No Past Patient History - Past Social History Smoking Status: Light Smoker < 10 Cigarettes Daily - CARDIAC Hx Hypertension: Yes - PSYCHIATRIC Hx Substance Use: No - SURGICAL HISTORY Hx Surgeries: No - ANESTHESIA Hx Anesthesia: No Meds Allergies/Adverse Reactions: Allergies Allergy/AdvReac Type Severity Reaction Status Date / Time No Known Allergies Allergy Verified 06/01/18 15:03 Physical Exam - Constitutional Appears: Non-toxic, No Acute Distress - Head Exam Head Exam: ATRAUMATIC, NORMAL INSPECTION, NORMOCEPHALIC - Eye Exam Eye Exam: EOMI, Normal appearance Pupil Exam: NORMAL ACCOMODATION - ENT Exam ENT Exam: Mucous Membranes Moist - Neck Exam Neck exam: Positive for: Full Rom. Negative for: Tenderness - Respiratory Exam Respiratory Exam: Decreased Breath Sounds, NORMAL BREATHING PATTERN. absent: Rales, Rhonchi, Wheezes - Cardiovascular Exam Cardiovascular Exam: REGULAR RHYTHM, +S1, +S2. absent: Systolic Murmur - GI/Abdominal Exam GI & Abdominal Exam: Distended, Normal Bowel Sounds, Soft. absent: Guarding, Hernia, Rebound, Rigid, Tenderness - Extremities Exam Extremities exam: Positive for: normal inspection, pedal pulses present. Negative for: calf tenderness, joint swelling, pedal edema, tenderness - Back Exam Back exam: CVA tenderness (R), NORMAL INSPECTION - Neurological Exam Neurological exam: Alert, Oriented x3 - Psychiatric Exam Psychiatric exam: Normal Affect, Normal Mood - Skin Skin Exam: Dry, Normal Color, Warm Results - Vital Signs Recent Vital Signs: Last Vital Signs Temp 97.7 F 06/01/18 15:05 Pulse 81 06/01/18 18:44 Resp 19 06/01/18 18:44 BP 151/91 H 06/01/18 18:44 Pulse Ox 96 06/01/18 18:44 - Labs Result Diagrams: 06/01/18 15:59 06/01/18 15:59 Labs: Laboratory Results - last 24 hr 06/01/18 06/01/18 06/01/18 15:59 15:59 16:55 WBC 5.5 RBC 4.82 Hgb 15.3 Hct 44.6 MCV 92.5 MCH 31.8 H MCHC 34.4 RDW 14.4 Plt Count 204 MPV 9.6 Neut % (Auto) 64.7 Lymph % (Auto) 22.8 [place] % (Auto) 10.3 H Eos % (Auto) 1.2 Baso % (Auto) 1.0 Neut # (Auto) 3.5 Lymph # (Auto) 1.2 [place] # (Auto) 0.6 Eos # (Auto) 0.1 Baso # (Auto) 0.1 PT 12.0 INR 1.1 APTT 35 H D-Dimer, Quantitative 470 H Sodium 142 Potassium 5.1 Chloride 109 H Carbon Dioxide 23 Anion Gap 15 BUN 12 Creatinine 1.0 Est GFR ( Amer) > 60 Est GFR (Non-Af Amer) > 60 Random Glucose 98 Calcium 8.8 Total Bilirubin 1.1 AST 36 ALT 22 Alkaline Phosphatase 61 Troponin I 0.0680 NT-Pro-B Natriuret Pep 3710 H Total Protein 7.1 Albumin 3.7 Globulin 3.4 Albumin/Globulin Ratio 1.1 Urine Color Urine Clarity Urine pH Ur Specific [place] Urine Protein Urine Glucose (UA) Urine Ketones Urine Blood Urine Nitrate Urine Bilirubin Urine Urobilinogen Ur Leukocyte Esterase Urine WBC (Auto) Urine Bacteria Urine Opiates Screen Urine Methadone Screen Ur Barbiturates Screen Ur Phencyclidine Scrn Ur Amphetamines Screen U Benzodiazepines Scrn U Oth Cocaine Metabols U Cannabinoids Screen 06/01/18 06/01/18 17:11 17:11 WBC RBC Hgb Hct MCV MCH MCHC RDW Plt Count MPV Neut % (Auto) Lymph % (Auto) [place] % (Auto) Eos % (Auto) Baso % (Auto) Neut # (Auto) Lymph # (Auto) [place] # (Auto) Eos # (Auto) Baso # (Auto) PT INR APTT D-Dimer, Quantitative Sodium Potassium Chloride Carbon Dioxide Anion Gap BUN Creatinine Est GFR ( Amer) Est GFR (Non-Af Amer) Random Glucose Calcium Total Bilirubin AST ALT Alkaline Phosphatase Troponin I NT-Pro-B Natriuret Pep Total Protein Albumin Globulin Albumin/Globulin Ratio Urine Color Yellow Urine Clarity Clear Urine pH 6.0 Ur Specific [place] 1.004 Urine Protein Negative Urine Glucose (UA) Normal Urine Ketones Negative Urine Blood Negative Urine Nitrate Negative Urine Bilirubin Negative Urine Urobilinogen Normal Ur Leukocyte Esterase Neg Urine WBC (Auto) < 1 Urine Bacteria Rare Urine Opiates Screen Negative Urine Methadone Screen Negative Ur Barbiturates Screen Negative Ur Phencyclidine Scrn Negative Ur Amphetamines Screen Negative U Benzodiazepines Scrn Negative U Oth Cocaine Metabols Negative U Cannabinoids Screen Negative Assessment & Plan - Assessment and Plan (Free Text) Assessment: A/P: Patient is a 58 year old male with past medical history of Hypertension who presented to the Emergency Dept for worsening dyspnea and left sided chest pain. Dyspnea likely secondary to new onset CHF -Stable, afebrile -EKG showed LVH with inverted T waves -Initial Troponin negative, Trend [place] Q8H x 2 -CXR showed Cardiomegaly with increased pulmonary vascular congestion (see full report) -S/P Lasix 20mg IVP x 1 -Echocardiogram ordered -Start on Lisinopril 10mg daily, Coreg 3.125mg PO BID -Continue Lasix 20mg IVP daily -Daily weights, Intake and output -Cardiology on consult, Dr Loza, help appreciated Chest pain, r/o ACS -EKG showed LVH with inverted T waves -Initial Troponin negative, Trend [place] Q8H x 2 -F/U TSH/Free T4, Lipid panel, Hemoglobin A1C -Cardiology on consult, Dr Loza, help appreciated Hypertension -Started on Lisinopril 10mg PO daily, Coreg 3.125mg PO BID -Monitor Vitals Renal Cysts -Up to 6.6cm renal cyst noted on abdominal US -Will order CT abd/pelvis for further evaluation Tobacco abuse -Cessation encouraged GI/DVT ppx: -Protonix 40mg PO daily -Lovenox 40mg SC daily Systolic CHF HTN Mosl likely hypertensive Cardiomyopathy Cath Tuesday r/o CAD Aggressive systolic CHF management Past Patient History - Past Medical History & Family History Past Medical History?: Yes - Past Social History Smoking Status: Light Smoker < 10 Cigarettes Daily - CARDIAC Hx Hypertension: Yes - MUSCULOSKELETAL/RHEUMATOLOGICAL Hx Falls: No - PSYCHIATRIC Hx Substance Use: No - SURGICAL HISTORY Hx Surgeries: No - ANESTHESIA Hx Anesthesia: No Meds Allergies/Adverse Reactions: Allergies Allergy/AdvReac Type Severity Reaction Status Date / Time No Known Allergies Allergy Verified 06/01/18 15:03 - Medications Medications: Current Medications Acetaminophen (Tylenol 325mg Tab) 650 mg PO Q6 PRN PRN Reason: Headache Last Admin: 06/01/18 22:13 Dose: 650 mg Albuterol/Ipratropium (Duoneb 3 Mg/0.5 Mg (3 Ml) Ud) 3 ml INH RQ6 PRN PRN Reason: Shortness of Breath Aspirin (Aspirin Chewable) 81 mg PO DAILY [facility] Last Admin: 06/03/18 09:37 Dose: 81 mg Carvedilol (Coreg) 6.25 mg PO BID [facility] Last Admin: 06/03/18 17:49 Dose: 6.25 mg Enoxaparin Sodium (Lovenox) 40 mg SC DAILY [facility] Last Admin: 06/03/18 09:37 Dose: 40 mg Furosemide (Lasix) 40 mg IVP Q24H [facility] Last Admin: 06/03/18 13:36 Dose: 40 mg Lisinopril (Zestril) 10 mg PO DAILY [facility] Last Admin: 06/03/18 09:37 Dose: 10 mg Nicotine (Nicoderm Cq) 1 patch TD DAILY [facility] Pantoprazole Sodium (Protonix Ec Tab) 40 mg PO DAILY [facility] Last Admin: 06/03/18 09:37 Dose: 40 mg Rosuvastatin Calcium (Crestor) 5 mg PO HS [facility] Last Admin: 06/03/18 22:14 Dose: 5 mg Results - Vital Signs Recent Vital Signs: Last Vital Signs Temp 98.3 F 06/03/18 15:00 Pulse 72 06/03/18 15:00 Resp 20 06/03/18 15:00 BP 146/94 H 06/03/18 15:00 Pulse Ox 96 06/03/18 15:00 - Labs Result Diagrams: 06/03/18 11:56 06/03/18 11:56 Labs: Laboratory Results - last 24 hr 06/03/18 06/03/18 11:56 11:56 WBC 5.4 RBC 5.01 Hgb 15.7 Hct 46.7 MCV 93.3 MCH 31.4 H MCHC 33.7 RDW 14.0 Plt Count 214 MPV 9.8 Neut % (Auto) 62.2 Lymph % (Auto) 26.0 [place] % (Auto) 9.1 Eos % (Auto) 2.0 Baso % (Auto) 0.7 Neut # (Auto) 3.4 Lymph # (Auto) 1.4 [place] # (Auto) 0.5 Eos # (Auto) 0.1 Baso # (Auto) 0.0 Sodium 137 Potassium 4.2 Chloride 105 Carbon Dioxide 26 Anion Gap 11 BUN 18 Creatinine 1.0 Est GFR ( Amer) > 60 Est GFR (Non-Af Amer) > 60 Random Glucose 114 H Calcium 9.6 Phosphorus 4.2 Magnesium 1.9 Total Bilirubin 0.7 AST 23 ALT 18 L Alkaline Phosphatase 77 Total Protein 7.4 Albumin 4.2 Globulin 3.2 Albumin/Globulin Ratio 1.3
[2018-06-04 07:26] LABS: BASO # 0.1 K/uL (0.0-0.2); BASO % 0.9 % (0.0-2.0); EOS # 0.1 K/uL (0.0-0.7); EOS % 1.7 % (0.0-4.0); HEMOGLOBIN 16.5 g/dL (12.0-18.0); LYMPH # 1.2 K/uL (1.0-4.3); LYMPH % 19.7 % (20.0-40.0); MEAN CELL VOLUME 93.3 fL (80.0-94.0); MEAN CORPUSCULAR HEMOGLOBIN 31.8 pg (27.0-31.0); MEAN CORPUSCULAR HGB CONC 34.1 g/dL (33.0-37.0); MEAN PLATELET VOLUME 9.9 fL (7.2-11.7); MONO # 0.4 K/uL (0.0-0.8); MONO % 6.8 % (0.0-10.0); NEUT # 4.4 K/uL (1.8-7.0); NEUT % 70.9 % (50.0-75.0); RBC 5.2 Mil/uL (4.40-5.90); WHITE BLOOD COUNT 6.2 K/uL (4.8-10.8)
[2018-06-04 07:45] LABS: ALB/GLOB RATIO 1.2 (1.0-2.1); ALBUMIN 3.8 g/dL (3.5-5.0); ALT/SGPT 15 U/L (21-72); AST/SGOT 24 U/L (17-59); BLOOD UREA NITROGEN 24 mg/dL (9-20); GFR NON-AFRICAN AMERICAN > 60
[2018-06-04] MEDS: Pantoprazole 40 mg EC Tab PO SCH (09:29)
[2018-06-04] MEDS: Enoxaparin 40 mg Syringe SC SCH (09:30)
--- NOTE | 2018-06-04 21:36 | CP.PCM.PN ---
Subjective - Date & Time of Evaluation Date of Evaluation: 06/04/18 Time of Evaluation: 12:00 - Subjective Subjective: hospitalist note: Patient seen, examined, case discussed with medical claims representative. Patient denies headache, reports dyspnea on exertion and has been improving, denies cough denies chest pain denies abdominal pain denies nausea denies vomi ting denies dysuria denies constipation. Patient reports for the past 3 months he's been taking Viagra for erectile dysfunction issues. 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 I had a discussion with him in regards to the cardiac cath would allow the interventional cardiology to assess the coronary arteries which feed the heart to determine if he has was called ischemic cardiomyopathy. We did have abated discussion as well in regards to his hypertension and his noncompliance with his medications which are just a strong risk factor for his heart disease. We also had a quite big discussion about smoking uses well which will take a toll both on the lungs and the heart which he is also well aware Objective - Vital Signs/Intake and Output Vital Signs (last 24 hours): Temp Pulse Resp BP Pulse Ox 97.5 F L 80 20 156/104 H 98 06/04/18 15:00 06/04/18 16:39 06/04/18 15:00 06/04/18 17:34 06/04/18 15:00 Intake and Output: 06/04/18 06/05/18 18:59 06:59 Intake Total 600 Output Total 400 1100 Balance 200 -1100 - Medications Medications: Current Medications Acetaminophen (Tylenol 325mg Tab) 650 mg PO Q6 PRN PRN Reason: Headache Last Admin: 06/01/18 22:13 Dose: 650 mg Albuterol/Ipratropium (Duoneb 3 Mg/0.5 Mg (3 Ml) Ud) 3 ml INH RQ6 PRN PRN Reason: Shortness of Breath Aspirin (Aspirin Chewable) 81 mg PO DAILY [facility] Last Admin: 06/04/18 09:29 Dose: 81 mg Carvedilol (Coreg) 12.5 mg PO BID [facility] Last Admin: 06/04/18 17:34 Dose: 12.5 mg Enoxaparin Sodium (Lovenox) 40 mg SC DAILY [facility] Last Admin: 06/04/18 09:30 Dose: Not Given Famotidine (Pepcid) 20 mg PO BID [facility] Last Admin: 06/04/18 17:34 Dose: 20 mg Furosemide (Lasix) 40 mg IVP Q24H [facility] Last Admin: 06/04/18 13:25 Dose: 40 mg Lisinopril (Zestril) 10 mg PO DAILY [facility] Last Admin: 06/04/18 09:29 Dose: 10 mg Nicotine (Nicoderm Cq) 1 patch TD DAILY [facility] Last Admin: 06/04/18 09:29 Dose: 1 patch Rosuvastatin Calcium (Crestor) 5 mg PO HS [facility] Last Admin: 06/03/18 22:14 Dose: 5 mg - Labs Labs: 06/04/18 07:16 06/04/18 07:16 PT 12.0 SECONDS (9.7-12.2) 06/01/18 16:55 INR 1.1 06/01/18 16:55 APTT 35 SECONDS (21-34) H 06/01/18 16:55 - Constitutional Appears: Non-toxic, No Acute Distress - Head Exam Head Exam: NORMAL INSPECTION - Eye Exam Eye Exam: EOMI - ENT Exam ENT Exam: Mucous Membranes Moist - Respiratory Exam Respiratory Exam: Clear to Ausculation Bilateral - Cardiovascular Exam Cardiovascular Exam: REGULAR RHYTHM, +S1, +S2 - GI/Abdominal Exam GI & Abdominal Exam: Soft, Normal Bowel Sounds. absent: Distended, Firm, Guarding, Rigid, Tenderness, Rebound - Extremities Exam Extremities Exam: Pedal Edema (trace). absent: Tenderness - Back Exam Back Exam: absent: CVA tenderness (L), CVA tenderness (R) - Neurological Exam Neurological Exam: Alert, Awake, Oriented x3 - Psychiatric Exam Psychiatric exam: Normal Affect, Normal Mood - Skin Skin Exam: Dry, Intact, Normal Color, Warm Assessment and Plan (1) CHF (congestive heart failure) Assessment & Plan: cardiology on board Official echocardiogram pending read Monitor weights Monitor intake and outputs Aspirin 81 mg once a day Increase Coreg to 12.5 mg by mouth twice today Lasix 40 mg IV once a day Increase lisinopril to 20 mg once a day Patient is recommended for cardiac cath however he expresses reservation we did to follow-up with Dr. Loza in regards to patient's a hesitancy will be up to the patient to determine if he allows it would be schedule tomorrow in the evening Status: Acute (2) Uncontrolled hypertension Assessment & Plan: Coreg 12.5 mg by mouth twice a day Lisinopril 20 mg once a day Lasix 40 mg IV once a day Aspirin 81 mg by mouth daily Status: Acute (3) Erectile dysfunction Assessment & Plan: note patient was on Viagra for the past 3 months. I did indicate to him the side efect is hypotension if he continues to take his current pressure medications with Viagra Status: Chronic (4) Tobacco abuse Assessment & Plan: NicoDerm 1 patch transdermal once a day Status: Acute (5) Renal cyst Assessment & Plan: multiple left-sided renal cysts the largest measuring 6.8 cm as described.. Small right-sided effusion with minor right basilar atelectasis. Cardiomegaly. Few scattered colonic diverticuli withou Slightly nodular appearing adrenal g. Cardiomegaly abdominal ultrasound echogenic liver may be seen in the setting of hepatic parenchymal fatty infiltration. Left renal cysts measuring up to 6.6 cm. patient advised to stop smoking. Family history father had kidney cancer. A she will need further follow-up in renal cyst. Status: Acute (6) Prophylactic measure Assessment & Plan: Lovenox 40 mg daily Pepcid 20 mg by mouth twice a day Status: Acute
--- NOTE | 2018-06-04 23:51 | CARD ---
APPROVED REPORT Date of service: 06/02/2018 EXAM: Two-dimensional and M-mode echocardiogram with Doppler and color Doppler. Other Information Quality : GoodRhythm : INDICATION Dyspnea Congestive Heart Failure Echo Enhancing Agent Indication: Endocardial border delineation Agent/Amount Used: Definity RISK FACTORS Hypertension 2D DIMENSIONS IVSd1.5 (0.7-1.1cm)LVDd6.4 (3.9-5.9cm) PWd1.5 (0.7-1.1cm)LA Eetgmw514 (18-58mL) LVDs5.7 (2.5-4.0cm)FS (%) 10.3 % LVEF (%)22.1 (>50%)LVEF (Becker's)23.89 % M-Mode DIMENSIONS Left Atrium (MM)4.71 (2.5-4.0cm)IVSd1.71 (0.7-1.1cm) Aortic Root3.79 (2.2-3.7cm)LVDd6.32 (4.0-5.6cm) Aortic Cusp Exc.2.54 (1.5-2.0cm)PWd1.65 (0.7-1.1cm) FS (%) 11 %LVDs5.64 (2.0-3.8cm) LVEF (%)23 (>50%) Mitral Valve MV E Zlnrzikw17.3cm/sMV A Pfdrjdve04.1cm/sE/A ratio2.8 NNXI221.73 cm/s TDI Lateral E' Peak V5.00cm/sMedial E' Peak V2.80cm/sE/Lateral E'17.7 E/Medial E'31.5 Tricuspid Valve TR Peak Zcrvkciq941el/sTR Peak Gr.70wxWiPLDR29sjWm LEFT VENTRICLE The Left Ventricle is moderately dilated. There is mild to moderate concentric left ventricular hypertrophy. Left ventricle systolic function is severely impaired. The Ejection Fraction is 20-25%. There is global hypokinesis of the left ventricle. The left ventricular diastolic function is normal. Apical echoes consistent with trabeculae are noted. Cannot rule out associated thrombi. Definity contrast study revealed a less dense area in the apex as well. Suggest DELIA to rule out thrombus. RIGHT VENTRICLE The right ventricle is mildly to moderately dilated. There is normal right ventricular wall thickness. Systolic function is severely reduced. ATRIA The left atrium is moderately dilated. The right atrium is moderately dilated. The interatrial septum is intact with no evidence for an atrial septal defect. AORTIC VALVE The aortic valve is normal in structure. No aortic regurgitation is present. There is no aortic valvular stenosis. There is no aortic valvular vegetation. MITRAL VALVE The mitral valve is normal in structure. There is no evidence of mitral valve prolapse. There is no mitral valve stenosis. Mitral regurgitation is mild. TRICUSPID VALVE The tricuspid valve is normal in structure. There is mild tricuspid regurgitation. Right ventricular systolic pressure is estimated at 40-50 mmHg. There is mild-moderate pulmonary hypertension. PULMONIC VALVE The pulmonic valve is not well visualized. There is mild pulmonic valvular regurgitation. GREAT VESSELS The aortic root is normal in size. <Conclusion> Left ventricle systolic function is severely impaired. The Ejection Fraction is 20-25%. Apical echoes consistent with trabeculae are noted. Cannot rule out associated thrombi. Definity contrast study revealed a less dense area in the apex as well. Suggest DELIA to rule out thrombus. No aortic regurgitation is present. Mitral regurgitation is mild. There is mild tricuspid regurgitation. There is mild-moderate pulmonary hypertension. There is mild pulmonic valvular regurgitation.
[2018-06-05 07:53] LABS: BASO % 0.7 % (0.0-2.0); EOS # 0.1 K/uL (0.0-0.7); EOS % 1.8 % (0.0-4.0); HEMOGLOBIN 17.7 g/dL (12.0-18.0); LYMPH # 1.5 K/uL (1.0-4.3); LYMPH % 26.2 % (20.0-40.0); MEAN CELL VOLUME 93.1 fL (80.0-94.0); MEAN CORPUSCULAR HEMOGLOBIN 31.7 pg (27.0-31.0); MEAN CORPUSCULAR HGB CONC 34.1 g/dL (33.0-37.0); MEAN PLATELET VOLUME 9.6 fL (7.2-11.7); MONO # 0.7 K/uL (0.0-0.8); MONO % 12.3 % (0.0-10.0); NEUT # 3.3 K/uL (1.8-7.0); NRBC % 0.1 % (0.0-2.0); RBC 5.58 Mil/uL (4.40-5.90); RED CELL DISTRIBUTION WIDTH 14.2 % (11.5-14.5); WHITE BLOOD COUNT 5.7 K/uL (4.8-10.8)
[2018-06-05 08:09] LABS: ALB/GLOB RATIO 1.2 (1.0-2.1); ALBUMIN 3.7 g/dL (3.5-5.0); ALT/SGPT 21 U/L (21-72); AST/SGOT 32 U/L (17-59); BLOOD UREA NITROGEN 26 mg/dL (9-20); CALCIUM 8.9 mg/dl (8.6-10.4); GFR NON-AFRICAN AMERICAN > 60
[2018-06-05] MEDS: Enoxaparin 40 mg Syringe SC SCH (10:10)
--- NOTE | 2018-06-05 11:12 | CARD ---
APPROVED REPORT Date of service: 06/01/2018 EKG Measurement Heart [id number] MI [id number] <Conclusion> Normal sinus rhythm Possible Left atrial enlargement Left axis deviation Left ventricular hypertrophy with repolarization abnormality Prolonged QT Abnormal ECG
[2018-06-05 16:12] VITALS: BP 131/89; PULSE 78; TEMP 98.3; O2SAT 96
--- NOTE | 2018-06-05 16:43 | CP.PCM.PN ---
Subjective - Date & Time of Evaluation Date of Evaluation: 06/05/18 Time of Evaluation: 10:35 - Subjective Subjective: Medical attending note Patient seen, examined, case discussed with medical coder. Discussed with patient at bedside multiple things: 1 we did discuss with him the findings of his echo which indicated that he has have severe systolic heart failure by 20- 25% per reading, and that there are noted abnormalities of trabeculated which ma y be suspicious for thrombus. I did indicate to him that he may need further studies with a specialized echo to see if this is the case consists this would put him at risk for stroke. I also did indicate to the patient who seemed very insistent on me showing him his actual echo imaging that I am not trained an echo that this is a report by a train cardiologists who has read his echocardiogram and noted this finding. Patient was very insistent and I did indicate I'm not comfortable showing him an echo thigh myself cannot personally shown since I'm not trained in this field that this would be a better question suited to a supervisor elementary education. We also did indicate to the patient that when people have severe systolic dysfunction he may be recommended for something called a LifeVest which is sometimes getting to those individuals with a low ejection fraction in light of potential deadly arrhythmia as a bridge for a defibrillator if he needs it. I also did indicate to him this would be a follow-up question with with the supervisor elementary education who has not done rounds at this time. Patient was scheduled for a cardiac cath today a for the evening time and was recommended for outpatient follow-up to reschedule cath prior to the report of the echocardiogram been finalized last night. Patient appears very upset reports that he has a job lined up for tomorrow however I did indicate to him that this report was not available to me at the time of my rounds yesterday but is available at which is why we are having this discussion today I have also shared with him his CAT scan report and his abdominal ultrasound report noting that he does have a large renal cyst and in light of his dad having kidney cancer and his current risk of smoking that this is something that would need to be monitored further to avoid cancer that this is something that needs to be followed up given that he currently does not have a primary care doctor. I also did indicate to him that he's had hypertension for quite some time and for some reason he has chosen not to taking his medications as directed. He had noted to me that he had taken his medications all at once when he did take blood pressure medication and stopped on his own. I did indicate to him that is a chronic stress on the body including his heart by not taking medications to help control the blood pressure. Patient also reluctantly admits that he is a smoker though he has no cravings in the hospital for the past 5 days he admits reluctantly to possibly 30 years plus of smoking. I did indicate to him as well that going forward by him not smoking she is preserving whatever function that has not been affected by smoking however that does not reverse the impact of smoking that has had on the body for the past 30 years. Patient is again very frustrated and also ignoring the education and relate in light of his chronic conditions. I also did indicate to him since he is currently not on Viagra while being hospitalized that if he chooses to go back on Viagra that he would need his blood pressure monitor since the side effect of Viagra his hypotension or low blood pressure. Patient reports he will not go back on Viagra. Yesterday patient thought the Viagra causes hypertension and I told him it's actually the opposite the concern for hypotension. I did ask for him to repeat back what he learned from hypertension and smoking just so I get an indication of how much he is understanding he continues to ignore the impact that these 2 risk factors have made to his body over time. This is based my conversations with patient as of this morning. My resident has followed up with cardiology especially in light of the echo results which changed the plan for potential discharge to continue inpatient workup in light of a potential thrombus in the heart. I did see the patient again this afternoon. Resident has indicated to me that patient is very upset and wants to leave the hospital as a discharge however I did have another conversation with the patient indicating the because the echo which would warrant further investigation that he would be leaving AGAINST MEDICAL ADVICE. Patient was scheduled for cardiac cath this evening. We did speak with the supervisor elementary education jorgito Loza in light of the echo findings noted that the essentially a thrombus cannot be ruled out. I did explain to the patient he may need a specialized echo to see if this thrombus is present or not given that right now we have one echo and based on that one echo we cannot say he does not have a risk for potential stroke. I did have this conversation with both his nurse Tonia ramey as well as with my medical coder who was present. In light of the echo findings specifically the potential for microthrombi and potential stroke, patient would be leaving AGAINST MEDICAL ADVICE if he chooses to leave today. I also did indicate to him that we he does have access a patient portal to show him his information and that he will need to speak with medical records in regards to his reports completed during hospitalization. Patient is also very insistent on getting a blood test known as a type and screen. I did indicate to him he he does not have a medical condition where in we are thinking of giving him blood products or having any invasive procedure that would require giving blood products to warrant such a test. I also did indicate to him that type and screen is usually good for about 24 hours and if he needed blood products that we would do this test in preparation for. Patient is asking for information in regards to statistics regarding things like LifeVest, operations, procedures, and I have told him that this information that he seeking would be better sought from the supervisor elementary education who performs these procedures and and makes these recommendations on a daily basis. I also did indicate to him I have no problem showing his reports since these reports are read by trained professionals in their field but I myself cannot read an echo to show him where the abnormality is given that I'm not trained an echos. Patient is also asking for information in regards to writing a letter saying for the hospital to assume costs for a job he is signed on for tomorrow. I told him that in terms of my medical opinion that if this abnormality is in the echocardiogram is showing potential clot and is he is at risk for stroke he would need further testing to see if this is truly the case. Patient is requesting this follow up echo can be done outpatient and can have told him this would need further in investigation as inpatient. I also did indicate to him that no one here is trying to prevent him from his job, however he medically he is not a safe discharge. Also I have indicated to him if he does not want to sign the AMA form he does not have to. We also did indicate with to him that the supervisor elementary education is planning on speaking with him in the evening at around 7 PM. Patient goes back and forth in regards to waiting on the supervisor elementary education. We have also discussed with cardiology in light of patient wanting to leave AGAINST MEDICAL ADVICE in light of the new echo find ings he did recommend for aspirin 81 mg once a day, Plavix 75 mg once a day, Coreg 12.5 mg by mouth twice a day, lisinopril 10 mg once a day, Crestor 5 mg once in the evening 1 month supply with the clinic appointment which we are making for him. These know in review of our EMR last time he is visited our clinic was July 2017 and he did admit to me at bedside that he does not have a primary care doctor. I have expressed to him that there is bleeding risk associated with aspirin and Plavix that these are recommended in light of a potential clot in the heart. We did indicate to him that his blood pressure medications such as choric and lisinopril are to help with his heart condition but they will need to be monitored and adjusted by primary care doctor. We did start him on a Crestor whi ch is a statin which side effects include muscle aches and pains which he admits he does not have but this is also something to monitor as well. Patient did express to me some type of "horse bleeding" associated with Lasix I did pull it up on google since I was not familiar with what he was saying negative did indicate to him I did not see any medical study confirming this side effect of Lasix. We did indicate to him he does put himself at risk for deadly heart arrhythmias or abnormal heart rhythms, stroke as well as cardiopulmonary arrest he chooses to leave AGAINST MEDICAL ADVICE. Objective - Vital Signs/Intake and Output Vital Signs (last 24 hours): Temp Pulse Resp BP Pulse Ox 98.3 F 78 20 131/89 96 06/05/18 15:00 06/05/18 15:00 06/05/18 15:00 06/05/18 15:00 06/05/18 15:00 Intake and Output: 06/05/18 06/05/18 06:59 18:59 Intake Total 10 500 Output Total 1500 Balance -1490 500 - Medications Medications: Current Medications Acetaminophen (Tylenol 325mg Tab) 650 mg PO Q6 PRN PRN Reason: Headache Last Admin: 06/01/18 22:13 Dose: 650 mg Albuterol/Ipratropium (Duoneb 3 Mg/0.5 Mg (3 Ml) Ud) 3 ml INH RQ6 PRN PRN Reason: Shortness of Breath Aspirin (Aspirin Chewable) 81 mg PO DAILY [facility] Last Admin: 06/05/18 10:10 Dose: 81 mg Carvedilol (Coreg) 12.5 mg PO BID [facility] Last Admin: 06/05/18 10:09 Dose: 12.5 mg Enoxaparin Sodium (Lovenox) 40 mg SC DAILY [facility] Last Admin: 06/05/18 10:10 Dose: 40 mg Famotidine (Pepcid) 20 mg PO BID [facility] Last Admin: 06/05/18 10:10 Dose: 20 mg Furosemide (Lasix) 40 mg IVP Q24H [facility] Last Admin: 06/05/18 12:43 Dose: 40 mg Lisinopril (Zestril) 20 mg PO DAILY [facility] Last Admin: 06/05/18 10:10 Dose: 20 mg Lisinopril (Zestril) 10 mg PO ONCE ONE Stop: 06/05/18 21:45 Nicotine (Nicoderm Cq) 1 patch TD DAILY [facility] Last Admin: 06/05/18 10:11 Dose: 1 patch Rosuvastatin Calcium (Crestor) 5 mg PO HS [facility] Last Admin: 06/04/18 21:38 Dose: 5 mg - Labs Labs: 06/05/18 07:46 06/05/18 07:46 PT 12.0 SECONDS (9.7-12.2) 06/01/18 16:55 INR 1.1 06/01/18 16:55 APTT 35 SECONDS (21-34) H 06/01/18 16:55 - Constitutional Appears: Non-toxic, No Acute Distress - Head Exam Head Exam: NORMAL INSPECTION - Eye Exam Eye Exam: EOMI - ENT Exam ENT Exam: Mucous Membranes Moist - Respiratory Exam Respiratory Exam: Clear to Ausculation Bilateral, NORMAL BREATHING PATTERN. absent: Rales, Rhonchi, Wheezes - Cardiovascular Exam Cardiovascular Exam: REGULAR RHYTHM, +S1, +S2 - GI/Abdominal Exam GI & Abdominal Exam: Soft, Normal Bowel Sounds. absent: Distended, Firm, G uarding, Rigid, Tenderness, Rebound - Extremities Exam Extremities Exam: absent: Pedal Edema, Tenderness - Neurological Exam Neurological Exam: Alert, Awake, Oriented x3 - Psychiatric Exam Psychiatric exam: Agitated, Anxious - Skin Skin Exam: Dry, Intact, Normal Color, Warm Assessment and Plan (1) Left against medical advice Status: Acute (2) CHF (congestive heart failure) Status: Acute (3) Uncontrolled hypertension Status: Acute (4) Erectile dysfunction Status: Chronic (5) Tobacco abuse Status: Acute (6) Renal cyst Status: Acute (7) Prophylactic measure Status: Acute
--- NOTE | 2018-06-05 18:29 | CP.PCM.DIS ---
Provider - Provider Date of Admission: 06/01/18 17:38 Attending physician: Karly Calhoun DO Time Spent in preparation of Discharge (in minutes): 35 Hospital Course - Lab Results Lab Results: Most Recent Lab Values WBC 5.7 K/uL (4.8-10.8) 06/05/18 07:46 RBC 5.58 Mil/uL (4.40-5.90) 06/05/18 07:46 Hgb 17.7 g/dL (12.0-18.0) 06/05/18 07:46 Hct 51.9 % (35.0-51.0) H 06/05/18 07:46 MCV 93.1 fL (80.0-94.0) 06/05/18 07:46 MCH 31.7 pg (27.0-31.0) H 06/05/18 07:46 MCHC 34.1 g/dL (33.0-37.0) 06/05/18 07:46 RDW 14.2 % (11.5-14.5) 06/05/18 07:46 Plt Count 218 K/uL (130-400) 06/05/18 07:46 MPV 9.6 fL (7.2-11.7) 06/05/18 07:46 Neut % (Auto) 59.0 % (50.0-75.0) 06/05/18 07:46 Lymph % (Auto) 26.2 % (20.0-40.0) 06/05/18 07:46 [place] % (Auto) 12.3 % (0.0-10.0) H 06/05/18 07:46 Eos % (Auto) 1.8 % (0.0-4.0) 06/05/18 07:46 Baso % (Auto) 0.7 % (0.0-2.0) 06/05/18 07:46 Neut # (Auto) 3.3 K/uL (1.8-7.0) 06/05/18 07:46 Lymph # (Auto) 1.5 K/uL (1.0-4.3) 06/05/18 07:46 [place] # (Auto) 0.7 K/uL (0.0-0.8) 06/05/18 07:46 Eos # (Auto) 0.1 K/uL (0.0-0.7) 06/05/18 07:46 Baso # (Auto) 0.0 K/uL (0.0-0.2) 06/05/18 07:46 PT 12.0 SECONDS (9.7-12.2) 06/01/18 16:55 INR 1.1 06/01/18 16:55 APTT 35 SECONDS (21-34) H 06/01/18 16:55 D-Dimer, Quantitative 470 ng/mlDDU (0-243) H 06/01/18 16:55 Sodium 140 mmol/L (132-148) 06/05/18 07:46 Potassium 4.0 mmol/L (3.6-5.2) 06/05/18 07:46 Chloride 101 mmol/L (98-107) 06/05/18 07:46 Carbon Dioxide 27 mmol/L (22-30) 06/05/18 07:46 Anion Gap 15 (10-20) 06/05/18 07:46 BUN 26 mg/dL (9-20) H 06/05/18 07:46 Creatinine 1.2 mg/dL (0.8-1.5) 06/05/18 07:46 Est GFR ( Amer) > 60 06/05/18 07:46 Est GFR (Non-Af Amer) > 60 06/05/18 07:46 Random Glucose 122 mg/dL (75-110) H 06/05/18 07:46 Hemoglobin A1c 6.7 % (4.2-6.5) H 06/02/18 11:29 Calcium 8.9 mg/dl (8.6-10.4) 06/05/18 07:46 Phosphorus 3.7 mg/dL (2.5-4.5) 06/05/18 07:46 Magnesium 2.0 mg/dL (1.6-2.3) 06/05/18 07:46 Total Bilirubin 1.0 mg/dL (0.2-1.3) 06/05/18 07:46 AST 32 U/L (17-59) 06/05/18 07:46 ALT 21 U/L (21-72) D 06/05/18 07:46 Alkaline Phosphatase 76 U/L (38-126) 06/05/18 07:46 Total Creatine Kinase 114 U/L (55-170) 06/02/18 11:29 CK-MB (Mass) 2.17 ng/mL (0.0-3.38) 06/02/18 11:29 Troponin I 0.0580 ng/mL (0.00-0.120) 06/02/18 11:29 NT-Pro-B Natriuret Pep 3710 pg/mL (0-900) H 06/01/18 15:59 Total Protein 6.9 g/dL (6.3-8.3) 06/05/18 07:46 Albumin 3.7 g/dL (3.5-5.0) 06/05/18 07:46 Globulin 3.2 gm/dL (2.2-3.9) 06/05/18 07:46 Albumin/Globulin Ratio 1.2 (1.0-2.1) 06/05/18 07:46 Triglycerides 152 mg/dL (0-149) H 06/02/18 11:29 Cholesterol 187 mg/dL (0-199) 06/02/18 11:29 LDL Cholesterol Direct 115 mg/dL (0-129) 06/02/18 11:29 HDL Cholesterol 36 mg/dL (30-70) 06/02/18 11:29 Free T4 0.90 ng/dL (0.78-2.19) 06/02/18 11:29 TSH 3rd Generation 0.84 mIU/L (0.46-4.68) 06/02/18 11:29 Urine Color Yellow (YELLOW) 06/01/18 17:11 Urine Clarity Clear (Clear) 06/01/18 17:11 Urine pH 6.0 (5.0-8.0) 06/01/18 17:11 Ur Specific [place] 1.004 (1.003-1.030) 06/01/18 17:11 Urine Protein Negative mg/dL (NEGATIVE) 06/01/18 17:11 Urine Glucose (UA) Normal mg/dL (Normal) 06/01/18 17:11 Urine Ketones Negative mg/dL (NEGATIVE) 06/01/18 17:11 Urine Blood Negative (NEGATIVE) 06/01/18 17:11 Urine Nitrate Negative (NEGATIVE) 06/01/18 17:11 Urine Bilirubin Negative (NEGATIVE) 06/01/18 17:11 Urine Urobilinogen Normal mg/dL (0.2-1.0) 06/01/18 17:11 Ur Leukocyte Esterase Neg Rika/uL (Negative) 06/01/18 17:11 Urine WBC (Auto) < 1 /hpf (0-5) 06/01/18 17:11 Urine Bacteria Rare (<OCC) 06/01/18 17:11 Urine Opiates Screen Negative (NEGATIVE) 06/01/18 17:11 Urine Methadone Screen Negative (NEGATIVE) 06/01/18 17:11 Ur Barbiturates Screen Negative (NEGATIVE) 06/01/18 17:11 Ur Phencyclidine Scrn Negative (NEGATIVE) 06/01/18 17:11 Ur Amphetamines Screen Negative (NEGATIVE) 06/01/18 17:11 U Benzodiazepines Scrn Negative (NEGATIVE) 06/01/18 17:11 U Oth Cocaine Metabols Negative (NEGATIVE) 06/01/18 17:11 U Cannabinoids Screen Negative (NEGATIVE) 06/01/18 17:11 Discharge Exam - Head Exam Head Exam: NORMAL INSPECTION Discharge Plan - Discharge Medications Prescriptions: Aspirin [Aspirin Chewable] 81 mg PO DAILY 30 Days #30 chew Carvedilol [Coreg] 12.5 mg PO BID 30 Days #60 tab Clopidogrel [Plavix] 75 mg PO DAILY 30 Days #30 tab Furosemide [Lasix] 20 mg PO DAILY 30 Days #30 tablet Lisinopril [Zestril] 20 mg PO DAILY 30 Days #30 tab Nicotine 14 mg/24 hr [Nicoderm CQ] 1 patch TD DAILY #30 patch Rosuvastatin Calcium [Crestor] 5 mg PO HS #30 tab - Follow Up Plan Condition: FAIR Disposition: AGAINST MEDICAL ADVICE
== END 2018-06-05 16:41 | disposition left against medical advice (07) | DRG 292 ==
LOC: C.ER 14:55 → C.9E 17:38 → C.6T 18:48
PROVIDERS: ADMIT Hospitalist; ATTEND Hospitalist
DX: I11.0 Hypertensive heart disease with heart failure (principal); J98.11 Atelectasis; F17.210 Nicotine dependence, cigarettes, uncomplicated; I42.0 Dilated cardiomyopathy; I20.9 Angina pectoris, unspecified; I50.22 Chronic systolic (congestive) heart failure; G47.33 Obstructive sleep apnea (adult) (pediatric); E66.9 Obesity, unspecified; K57.30 Diverticulosis of large intestine without perforation or abscess without bleeding; N52.9 Male erectile dysfunction, unspecified; Z91.14 Patient's other noncompliance with medication regimen; N28.1 Cyst of kidney, acquired; Z80.51 Family history of malignant neoplasm of kidney

== ENCOUNTER 2018-10-04 19:43 | Emergency (ER) | payer SELFPAY ==
[2018-10-04 19:43] VITALS: BMI 35.0
[2018-10-04 20:17] VITALS: TEMP 98.1
--- NOTE | 2018-10-04 20:20 | C.PDOC ---
History Of Present Illness 58 year old male with a Hx of HTN ran out of his medication a few weeks ago presents today with SOB on exertion. Patient reports the SOB is worse when laying supine and reports also having some chest pain. He had a similar presentation in May, at that time he was noncompliant with his medications, found to be in CHF and admitted for several days. Denies fever, chills, nausea, or vomiting. Time Seen by Provider: 10/04/18 20:04 Chief Complaint (Nursing): Chest Pain History Per: Patient History/Exam Limitations: no limitations Onset/Duration Of Symptoms: Days Current Symptoms Are (Timing): Still Present Modifying Factors: None Exacerbating Factors: Exertion, Other (Laying supine) Alleviating Factors: None Recent travel outside of the [place]: No Past Medical History Reviewed: Historical Data, Nursing Documentation, Vital Signs Vital Signs: Last Vital Signs Temp 98.1 F 10/04/18 20:14 Pulse 102 H 10/04/18 19:51 Resp 24 10/04/18 19:51 BP 182/118 H 10/04/18 19:51 Pulse Ox 94 L 10/04/18 19:51 - Medical History PMH: HTN Family History: States: Unknown Family Hx - Social History Hx Alcohol Use: No Hx Substance Use: No - Immunization History Hx Tetanus Toxoid Vaccination: No Hx Influenza Vaccination: No Hx Pneumococcal Vaccination: No Review Of Systems Constitutional: Negative for: Fever, Chills Cardiovascular: Negative for: Chest Pain, Palpitations Respiratory: Positive for: SOB with Excertion. Negative for: Cough Gastrointestinal: Negative for: Nausea, Vomiting Neurological: Negative for: Weakness, Numbness Physical Exam - Physical Exam Appears: Non-toxic Skin: Normal Color, Warm, Dry Head: Atraumatic, Normacephalic Eye(s): bilateral: Normal Inspection Oral Mucosa: Moist Neck: Normal, Supple Chest: Symmetrical, No Tenderness Cardiovascular: Rhythm Regular Respiratory: Normal Breath Sounds, No Rales, No Rhonchi, No Wheezing Gastrointestinal/Abdominal: Soft, No Tenderness Back: No CVA Tenderness Neurological/Psych: Oriented x3, Normal Speech ED Course And Treatment - Laboratory Results Result Diagrams: 10/04/18 20:47 10/04/18 20:47 Lab Interpretation: No Acute Changes (BNP 2870 with normal Troponin) ECG: Interpreted By Me ECG Rhythm: Sinus Rhythm (with LVH), L BBB (incomplete) O2 Sat by Pulse Oximetry: 94 (Room air) Pulse Ox Interpretation: Normal - Radiology CXR: Interpreted by Me CXR Interpretation: Yes: No Acute Disease, Cardiomegaly Progress Note: EKG, blood work, and CXR ordered. Coreg, lasix, and zestril administered. Reevaluation Time: 21:39 Reassessment Condition: Improved (Patient diuresed 1000 ml dilute urine and BP 164/100 and he has no shortness of breath.) Disposition Counseled Patient/Family Regarding: Studies Performed, Diagnosis, Need For Followup, Rx Given - Disposition Referrals: [facility] [Outside] Disposition: HOME/ ROUTINE Disposition Time: 21:43 Condition: IMPROVED Prescriptions: Carvedilol [Coreg] 6.25 mg PO DAILY #30 tab Furosemide [Lasix] 20 mg PO DAILY #30 tab Lisinopril [Zestril] 20 mg PO DAILY #30 tab Instructions: Heart Failure, Adult (DC), Heart Healthy Diet Forms: [employer] (Malawian) - Clinical Impression Clinical Impression: CHF (congestive heart failure), Congestive heart failure - Scribe Statement The provider has reviewed the documentation as recorded by the Scribe Jack Castrejon All medical record entries made by the Scribe were at my direction and personally dictated by me. I have reviewed the chart and agree that the record accurately reflects my personal performance of the history, physical exam, medical decision making, and the department course for this patient. I have also personally directed, reviewed, and agree with the discharge instructions and disposition.
[2018-10-04 20:50] LABS: BASO # 0.1 K/uL (0.0-0.2); BASO % 0.9 % (0.0-2.0); EOS # 0.1 K/uL (0.0-0.7); EOS % 0.9 % (0.0-4.0); HEMOGLOBIN 14.9 g/dL (12.0-18.0); LYMPH # 1.5 K/uL (1.0-4.3); LYMPH % 22.6 % (20.0-40.0); MEAN CELL VOLUME 95.5 fL (80.0-94.0); MEAN CORPUSCULAR HEMOGLOBIN 32.1 pg (27.0-31.0); MEAN CORPUSCULAR HGB CONC 33.6 g/dL (33.0-37.0); MONO # 0.5 K/uL (0.0-0.8); MONO % 7.7 % (0.0-10.0); NEUT # 4.4 K/uL (1.8-7.0); NEUT % 67.9 % (50.0-75.0); RBC 4.65 Mil/uL (4.40-5.90); RED CELL DISTRIBUTION WIDTH 13.8 % (11.5-14.5); WHITE BLOOD COUNT 6.4 K/uL (4.8-10.8)
[2018-10-04 21:03] LABS: ALB/GLOB RATIO 1.4 (1.0-2.1); ALBUMIN 4.1 g/dL (3.5-5.0); ALT/SGPT 16 U/L (21-72); AST/SGOT 28 U/L (17-59); BLOOD UREA NITROGEN 13 mg/dL (9-20); CALCIUM 8.6 mg/dl (8.6-10.4); GFR NON-AFRICAN AMERICAN > 60
[2018-10-04 21:16] LABS: B-TYPE NATRIURETIC PEPTIDE 2870 pg/mL (0-900)
[2018-10-04 21:39] VITALS: BP 164/102; PULSE 88; RESP 16
[2018-10-04 21:43] VITALS: O2SAT 94
--- NOTE | 2018-10-05 08:31 | RAD ---
Date of service: 10/04/2018 HISTORY: SOB COMPARISON: Portable chest 06/01/2018. FINDINGS: LUNGS: No active pulmonary disease. PLEURA: No significant pleural effusion identified, no pneumothorax apparent. CARDIOVASCULAR: No aortic atherosclerotic calcification present. Cardiomegaly no pulmonary vascular congestion. OSSEOUS STRUCTURES: No significant abnormalities. VISUALIZED UPPER ABDOMEN: Normal. OTHER FINDINGS: None. IMPRESSION: Stable cardiomegaly. No interval acute pulmonary disease appreciable. No pulmonary vascular congestion.
--- NOTE | 2018-10-05 12:17 | CARD ---
APPROVED REPORT Date of service: 10/04/2018 EKG Measurement Heart [id number] <Conclusion> Normal sinus rhythm Possible Left atrial enlargement Incomplete left bundle branch block Left ventricular hypertrophy with repolarization abnormality Prolonged QT Abnormal ECG
== END 2018-10-04 22:12 | disposition home or self-care (01) ==
LOC: C.ER 19:43
DX: I50.9 Heart failure, unspecified (principal); I10 Essential (primary) hypertension
CPT/HCPCS: 71045; 80053; 83880; 84484; 85025; 93005; 96374; 99284; J1940